=== PATIENT | male | born 1975 | race Caucasian/White ===

== ENCOUNTER → 2024-09-02 13:20 | Outpatient (REF) | payer OTHER, SELFPAY | LOC: RAD 13:20 | PROVIDERS: ATTENDING PHYSICIAN Orthopaedic Surgery; FAMILY PHYSICIAN Family Medicine | DX: M23.41 Loose body in knee, right knee (principal); M23.91 Unspecified internal derangement of right knee | CPT/HCPCS: 27369; 73580; 73700 ==